=== PATIENT | female | born 1945 | race Caucasian/White ===

== ENCOUNTER 2019-06-23 14:31 | Emergency (ER) | payer MEDICARE, OTHER ==
--- NOTE | 2019-06-23 14:48 | ED.PDOC ---
History of Present Illness - General Chief Complaint: Lower Extremity Injury Stated Complaint: left knee pain Time Seen by Provider: 06/23/19 14:43 Source: patient, RN notes reviewed, Vital Signs reviewed Exam Limitations: no limitations - History of Present Illness Initial Comments: Pt states she tripped over her daughter's dog 5 days ago and twisted her left knee. Has had left knee pain and swelling since and pain with walking. Denies hitting head or other injury. Pain has not improved so came to ED today for evaluation. Also reports previous arthroscopic surgery on left knee for meniscus tear several years ago. Allergies/Adverse Reactions: Allergies Sulfa Antibiotics Allergy (Verified 06/23/19 14:43) Home Medications: Ambulatory Orders Amlodipine Besylate 10 mg PO DAILY 06/23/19 Aspirin [Aspirin Adult Low Dose] 81 mg PO DAILY 06/23/19 Atorvastatin Calcium [Lipitor] 10 mg PO DAILY 06/23/19 Clopidogrel Bisulfate [Plavix] 75 mg PO QD 06/23/19 Hydroxychloroquine Sulfate [Hydroxychloroquine Sulfat] 200 mg PO BID 06/23/19 Metoprolol Succinate [Metoprolol Succinate ER] 100 mg PO DAILY 06/23/19 Telmisartan 40 mg PO DAILY 06/23/19 traMADol 37.5MG/APAP 325MG [Ultracet] 1 tab PO Q6H PRN #20 tab 06/23/19 Review of Systems - Review of Systems Constitutional: Denies: chills, fever EENTM: Denies: blurred vision, throat pain Respiratory: Denies: cough, orthopnea, short of breath Cardiology: Denies: chest pain, palpitations, syncope Gastrointestinal/Abdominal: Denies: abdominal pain, nausea, vomiting Musculoskeletal: States: joint pain - left knee. Denies: back pain, neck pain All other Systems: Reviewed and Negative Past Medical History (General) - Patient Medical History Hx Stroke: No Hx Congestive Heart Failure: No Hx Hypertension: Yes Hx Diabetes: No Surgical History: tonsillectomy - Vaccination History Hx Influenza Vaccination: No Hx Pneumococcal Vaccination: Yes - Social History Hx Tobacco Use: Yes Family Medical History - Family History Mother Family History: Unknown Living Status: Unknown Physical Exam - Physical Exam General Appearance: Alert, Comfortable, No apparent distress Neck: non-tender, full range of motion, supple, other - No C, T, L spine tenderness Cardiovascular/Respiratory: regular rate, rhythm, normal peripheral pulses, normal breath sounds, no respiratory distress Gastrointestinal/Abdominal: non-tender Back: normal inspection, no vertebral tenderness Thigh/Hip: normal inspection, non-tender, no evidence of injury, normal ROM Knee: other - Left knee has moderate effusion and diffusely TTP. Has FROM with pain. Negative anterior and posterior drawer sign Ankle: normal inspection, non-tender, no evidence of injury, normal ROM Foot: normal inspection, non-tender, no evidence of injury, normal ROM Skin: normal color, warm/dry Progress - Progress Progress: 06/23/19 15:39 Xray shows arthritis and effusion of left knee. She is NVI. I do not think she will tolerate crutches. She has cane that she uses at baseline. Will place IMANI wrap. RICE discussed and will be weight bear as tolerated. F/U with Dr. Hedrick as outpatient for continued evaluation for possible MRI if not improving with symptomatic treatment. - Results/Orders Results/Orders: EXAM DESCRIPTION: Knee,Left Complete CLINICAL HISTORY: 74 years Female, injury TECHNIQUE: 3 views of the left knee were performed. COMPARISON: None available. FINDINGS: The visualized bones appear well mineralized. No acute fracture or dislocation. 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 The soft tissues appear grossly unremarkable. 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 Departure - Departure Clinical Impression: Knee effusion, left, Arthritis of knee, left Time of Disposition: 15:37 Disposition: Discharge to Home or Self Care Condition: Fair Departure Forms: ED Discharge - Pt. Copy, Patient Portal Self Enrollment Instructions: DI for Leg Pain, DI for Knee Pain Diet: resume usual diet Activity: increase activity as tolerated Prescriptions: traMADol 37.5MG/APAP 325MG [Ultracet] 1 tab PO Q6H PRN #20 tab PRN Reason: Pain Home Medications: Ambulatory Orders Amlodipine Besylate 10 mg PO DAILY 06/23/19 Aspirin [Aspirin Adult Low Dose] 81 mg PO DAILY 06/23/19 Atorvastatin Calcium [Lipitor] 10 mg PO DAILY 06/23/19 Clopidogrel Bisulfate [Plavix] 75 mg PO QD 06/23/19 Hydroxychloroquine Sulfate [Hydroxychloroquine Sulfat] 200 mg PO BID 06/23/19 Metoprolol Succinate [Metoprolol Succinate ER] 100 mg PO DAILY 06/23/19 Telmisartan 40 mg PO DAILY 06/23/19 traMADol 37.5MG/APAP 325MG [Ultracet] 1 tab PO Q6H PRN #20 tab 06/23/19
--- NOTE | 2019-06-23 15:10 | RAD ---
EXAM DESCRIPTION: Knee,Left Complete CLINICAL HISTORY: 74 years Female, injury TECHNIQUE: 3 views of the left knee were performed. COMPARISON: None available. FINDINGS: The visualized bones appear well mineralized. No acute fracture or dislocation. 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 The soft tissues appear grossly unremarkable. 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 Electronically signed by: Andie Mejia MD 06/23/2019 3:08 PM [facility]
[2019-06-23 16:00] VITALS: BP 177/82; TEMP 98; O2SAT 98
== END 2019-06-23 16:00 | disposition home or self-care (01) ==
LOC: ER 14:31
DX: M25.462 Effusion, left knee (principal); M17.11 Unilateral primary osteoarthritis, right knee; I10 Essential (primary) hypertension; Z87.828 Personal history of other (healed) physical injury and trauma; Z98.890 Other specified postprocedural states; Z87.891 Personal history of nicotine dependence; Z79.82 Long term (current) use of aspirin; Z79.899 Other long term (current) drug therapy; Z88.2 Allergy status to sulfonamides